=== PATIENT | female | born 1985 | race Caucasian/White ===

== ENCOUNTER → 2018-09-20 | Outpatient (CLI) | payer BC, MEDICAID ==
[2014-05-16 14:36] VITALS: BP 134/84
[~2018-09-20] MED LIST: ALDACTONE25 MG PO; METFORMIN500 MG PO; NORCO 325 MG-51 TAB PO
== END ==
LOC: RAD 11:18
DX: M77.31 Calcaneal spur, right foot (principal); M79.89 Other specified soft tissue disorders

== ENCOUNTER → 2019-06-04 | Outpatient (CLI) | payer BC, MEDICAID ==
[2014-05-16 14:36] VITALS: BP 134/84
[~2019-06-04] MED LIST changes: +PREDNISONE1 MG; +TRAMADOL 50 MG TAB PO
== END ==
LOC: LAB 13:59
DX: H70.90 Unspecified mastoiditis, unspecified ear (principal)

== ENCOUNTER → 2019-06-05 | Outpatient (CLI) | payer BC, MEDICAID ==
[2014-05-16 14:36] VITALS: BP 134/84
== END ==
LOC: RAD 07:43
DX: H70.90 Unspecified mastoiditis, unspecified ear (principal)

== ENCOUNTER 2019-06-10 08:01 | Outpatient (RCR) | payer BC, MEDICAID ==
[2019-06-05 08:12] VITALS: BP 152/99
[2019-06-06 08:08] VITALS: BP 150/91
[2019-06-07 08:09] VITALS: BP 131/81
[2019-06-08 08:39] VITALS: BP 127/85
[2019-06-09 08:23] VITALS: BP 135/89
[~2019-06-10] VITALS: Ht 167.6 cm; Wt 131.8 kg
[2019-06-10 08:10] VITALS: BP 152/92
== END 2019-09-03 | disposition still patient (30) ==
LOC: AMSURD
DX: Z01.89 Encounter for other specified special examinations (principal)
CPT/HCPCS: J0696

== ENCOUNTER → 2019-09-30 | Outpatient (CLI) | payer BC, MEDICAID ==
[2019-09-30 12:41] LABS: BASO # 0.1 (0.02-0.10); EOS # 0.3 (0.04-0.40); EOS % 2.7 % (1.0-5.0); HEMATOCRIT 45.1 % (37.0-47.0); HEMOGLOBIN 14.4 g/dL (12.5-16.0); LYMPH# 2.5 (1.50-4.00); MEAN CELL VOLUME 85 fl (78-100); MEAN CORPUSCULAR HEMOGLOBIN 27 pg (27-31); MEAN CORPUSCULAR HGB CONC 32 g/dL (33-37); MEAN PLATELET VOLUME 11.1 fl (7.4-10.4); MONO # 0.6 (0.20-0.80); NEU # 6.5 (1.40-6.50); PLATELET COUNT 301 K/mm3 (130-400); RED BLOOD COUNT 5.28 M/mm3 (4.10-5.30); RED CELL DISTRIBUTION WIDTH 13.2 % (11.5-14.5)
[2019-09-30 12:50] LABS: POTASSIUM 4.4 mmol/L (3.5-5.1)
[2019-09-30 12:51] LABS: ALBUMIN 4.3 g/dL (3.5-5.0)
[2019-09-30 12:52] LABS: CALCIUM 10.4 mg/dL (8.3-10.5)
[2019-09-30 12:55] LABS: TOTAL BILIRUBIN 0.4 mg/dL (0.2-1.2)
[2019-09-30 13:46] LABS: ERYTHROCYTE SEDIMENTATION RATE 18 mm/hr (0-20)
[2019-10-01 11:42] LABS: ANA SCREEN with REFLEX Negative (Negative)
== END ==
LOC: LAB 12:11
PROVIDERS: Family Medicine
DX: Z00.00 Encounter for general adult medical examination without abnormal findings (principal); M25.50 Pain in unspecified joint; E78.5 Hyperlipidemia, unspecified; R73.9 Hyperglycemia, unspecified

== ENCOUNTER → 2019-11-18 | Outpatient (CLI) | payer BC, MEDICAID | LOC: LAB 14:47 | DX: E11.9 Type 2 diabetes mellitus without complications (principal) ==

== ENCOUNTER → 2020-02-18 | Outpatient (CLI) | payer BC, MEDICAID ==
[2020-02-18 08:13] LABS: BASO # 0.1 (0.02-0.10); EOS # 0.3 (0.04-0.40); EOS % 2.2 % (1.0-5.0); HEMOGLOBIN 13.7 g/dL (12.5-16.0); LYMPH# 3.1 (1.50-4.00); MEAN CELL VOLUME 86 fl (78-100); MEAN CORPUSCULAR HEMOGLOBIN 27 pg (27-31); MEAN CORPUSCULAR HGB CONC 32 g/dL (33-37); MEAN PLATELET VOLUME 10.3 fl (7.4-10.4); MONO # 0.9 (0.20-0.80); PLATELET COUNT 283 K/mm3 (130-400); RED BLOOD COUNT 5.02 M/mm3 (4.10-5.30); RED CELL DISTRIBUTION WIDTH 13.9 % (11.5-14.5); WHITE BLOOD COUNT 13.5 K/mm3 (4.8-10.8)
[2020-02-18 08:20] LABS: POTASSIUM 4.3 mmol/L (3.5-5.1)
[2020-02-18 08:21] LABS: ALBUMIN 3.9 g/dL (3.5-5.0)
[2020-02-18 08:23] LABS: TOTAL PROTEIN 7.8 g/dL (6.4-8.3)
[2020-02-18 08:25] LABS: TOTAL BILIRUBIN 0.2 mg/dL (0.2-1.2)
[2020-02-18 08:43] LABS: NEU # 9.2 (1.40-6.50)
== END ==
LOC: LAB 07:59
PROVIDERS: Physician Assistant
DX: E11.9 Type 2 diabetes mellitus without complications (principal); E78.5 Hyperlipidemia, unspecified; J30.9 Allergic rhinitis, unspecified; F41.9 Anxiety disorder, unspecified; E61.1 Iron deficiency; M25.50 Pain in unspecified joint; Z83.49 Family history of other endocrine, nutritional and metabolic diseases

== ENCOUNTER → 2020-04-07 | Outpatient (CLI) | payer BC, MEDICAID | LOC: RAD 08:42 | DX: M79.601 Pain in right arm (principal); Z98.890 Other specified postprocedural states ==

== ENCOUNTER → 2020-04-08 | Outpatient (CLI) | payer BC, MEDICAID | LOC: RAD 17:57 | DX: S83.241A Other tear of medial meniscus, current injury, right knee, initial encounter (principal); M17.11 Unilateral primary osteoarthritis, right knee ==

== ENCOUNTER → 2020-06-25 | Outpatient (CLI) | payer BC, MEDICAID ==
[2020-06-25 17:27] LABS: BASO # 0.1 (0.02-0.10); EOS # 0.3 (0.04-0.40); EOS % 2.2 % (1.0-5.0); HEMATOCRIT 41.4 % (37.0-47.0); HEMOGLOBIN 13.2 g/dL (12.5-16.0); LYMPH# 3.3 (1.50-4.00); MEAN CELL VOLUME 86 fl (78-100); MEAN CORPUSCULAR HEMOGLOBIN 28 pg (27-31); MEAN CORPUSCULAR HGB CONC 32 g/dL (33-37); MEAN PLATELET VOLUME 10.4 fl (7.4-10.4); MONO # 0.9 (0.20-0.80); NEU # 7.5 (1.40-6.50); PLATELET COUNT 303 K/mm3 (130-400); RED CELL DISTRIBUTION WIDTH 14.4 % (11.5-14.5); WHITE BLOOD COUNT 12.1 K/mm3 (4.8-10.8)
[2020-06-25 17:48] LABS: POTASSIUM 4.3 mmol/L (3.5-5.1)
[2020-06-25 17:49] LABS: CALCIUM 9.2 mg/dL (8.3-10.5)
[2020-06-25 17:50] LABS: TOTAL PROTEIN 7.7 g/dL (6.4-8.3)
[2020-06-25 17:52] LABS: TOTAL BILIRUBIN 0.3 mg/dL (0.2-1.2)
[2020-06-25 17:58] LABS: URINE APPEARANCE CLOUDY; URINE COLOR YELLOW
[2020-06-25 17:59] LABS: URINE BILIRUBIN NEGATIVE (NEGATIVE); URINE BLOOD NEGATIVE (NEGATIVE); URINE GLUCOSE NEGATIVE (NEGATIVE); URINE KETONE NEGATIVE (NEGATIVE); URINE LEUKOCYTE ESTERASE 1+ (NEGATIVE); URINE NITRATE NEGATIVE (NEGATIVE); URINE PROTEIN(semi-quant) TRACE mg/dL (NEGATIVE); URINE UROBILINOGEN NORMAL (NORMAL)
[2020-06-25 18:00] LABS: URINE MUCUS PRESENT (NOT PRESENT)
[2020-06-29 06:24] LABS: CORN ALLERGEN COUNT <0.10 kU/L (())
[2020-06-29 06:25] LABS: ALTERNARIA TENUIS CNT <0.10 kU/L (()); ASPERGILLUS FUMIGATUS AL COUNT <0.10 kU/L (()); BAKERS YEAST ALLERGEN COUNT <0.10 kU/L (()); BERMUDA GRASS ALLERGEN COUNT <0.10 kU/L (()); BOX ELDER-MAPLE ALLERGEN COUNT <0.10 kU/L (()); CAT DANDER ALLERGEN COUNT <0.10 kU/L (()); CLADOSPORIUM ALLERGEN COUNT <0.10 kU/L (()); COCKROACH ALLERGEN COUNT <0.10 kU/L (()); COTTONWOOD TREE ALLERGEN COUNT <0.10 kU/L (()); DOG DANDER ALLERGEN COUNT <0.10 kU/L (()); DUST MITES (D.F.) ALLERG COUNT <0.10 kU/L (()); DUST MITES (D.P.) ALLERG COUNT <0.10 kU/L (()); EGG WHITE ALLERGEN COUNT <0.10 kU/L (()); ELM TREE ALLERGEN COUNT <0.10 kU/L (()); FIREBUSH ALLERGEN COUNT <0.10 kU/L (()); MILK ALLERGEN COUNT <0.10 kU/L (()); OAK ALLERGEN COUNT <0.10 kU/L (()); ORANGE ALLERGEN COUNT <0.10 kU/L (()); PEANUT ALLERGEN COUNT <0.10 kU/L (()); RICE ALLERGEN COUNT <0.10 kU/L (()); ROUGH MARSH ELDER ALLERG COUNT <0.10 kU/L (()); RUSSIAN THISTLE ALLERGEN COUNT <0.10 kU/L (()); SHORT RAGWEED ALLERGEN COUNT <0.10 kU/L (()); SOYBEAN ALLERGEN COUNT <0.10 kU/L (()); STRAWBERRY ALLERGEN COUNT <0.10 kU/L (()); TOMATO ALLERGEN COUNT <0.10 kU/L (()); WHEAT ALLERGEN COUNT <0.10 kU/L (())
== END ==
LOC: RAD 17:00 → LAB 17:00
PROVIDERS: Family Medicine
DX: Z01.818 Encounter for other preprocedural examination (principal); E13.9 Other specified diabetes mellitus without complications; R21 Rash and other nonspecific skin eruption

== ENCOUNTER → 2020-07-07 | Outpatient (CLI) | payer BC, MEDICAID ==
[2020-07-07 15:07] LABS: PROTHROMBIN TIME 9.4 SECONDS (9.0-12.0)
== END ==
LOC: LAB 14:36
PROVIDERS: Family Medicine
DX: Z01.89 Encounter for other specified special examinations (principal)

== ENCOUNTER → 2021-04-25 | Outpatient (CLI) | payer BC, MEDICAID | LOC: LAB 14:37 | DX: E13.9 Other specified diabetes mellitus without complications (principal) ==

== ENCOUNTER → 2021-09-27 | Outpatient (CLI) | payer BC, MEDICAID ==
[2021-09-27 12:57] LABS: EOS # 0.16 K/mm3 (0.04-0.40); EOS % 1.4 % (1.0-5.0); HEMATOCRIT 41.8 % (37.0-47.0); HEMOGLOBIN 13.4 g/dL (12.5-16.0); LYMPH# 2.84 K/mm3 (1.50-4.00); MEAN CELL VOLUME 86 fl (78-100); MEAN CORPUSCULAR HEMOGLOBIN 28 pg (27-31); MEAN CORPUSCULAR HGB CONC 32 g/dL (33-37); MEAN PLATELET VOLUME 10.2 fl (7.4-10.4); MONO # 0.75 K/mm3 (0.20-0.80); NEU # 7.88 K/mm3 (1.40-6.50); PLATELET COUNT 303 K/mm3 (130-400); RED BLOOD COUNT 4.84 M/mm3 (4.10-5.30); RED CELL DISTRIBUTION WIDTH 13.7 % (11.5-14.5); WHITE BLOOD COUNT 11.8 K/mm3 (4.8-10.8)
[2021-09-27 13:09] LABS: ALBUMIN 3.9 g/dL (3.5-5.0)
[2021-09-27 13:10] LABS: CALCIUM 9.3 mg/dL (8.3-10.5)
[2021-09-27 13:11] LABS: TOTAL PROTEIN 7.4 g/dL (6.4-8.3)
[2021-09-27 13:13] LABS: TOTAL BILIRUBIN 0.3 mg/dL (0.2-1.2)
== END ==
LOC: LAB 12:44
PROVIDERS: Family Medicine
DX: Z02.1 Encounter for pre-employment examination (principal); J30.9 Allergic rhinitis, unspecified; F41.9 Anxiety disorder, unspecified; E13.9 Other specified diabetes mellitus without complications; E78.5 Hyperlipidemia, unspecified; Z83.49 Family history of other endocrine, nutritional and metabolic diseases; R53.83 Other fatigue; E61.1 Iron deficiency; E66.01 Morbid (severe) obesity due to excess calories

== ENCOUNTER → 2023-02-02 | Outpatient (CLI) | payer BC, MEDICAID ==
[2023-02-02 12:13] LABS: BASO # 0.04 K/mm3 (0.02-0.10); EOS # 0.15 K/mm3 (0.04-0.40); EOS % 1.2 % (1.0-5.0); HEMATOCRIT 36.2 % (37.0-47.0); HEMOGLOBIN 12.1 g/dL (12.5-16.0); LYMPH# 2.37 K/mm3 (1.50-4.00); MEAN CELL VOLUME 88 fl (78-100); MEAN CORPUSCULAR HEMOGLOBIN 29 pg (27-31); MEAN CORPUSCULAR HGB CONC 33 g/dL (33-37); MEAN PLATELET VOLUME 10.2 fl (7.4-10.4); MONO # 0.46 K/mm3 (0.20-0.80); NEU # 9.34 K/mm3 (1.40-6.50); PLATELET COUNT 255 K/mm3 (130-400); RED BLOOD COUNT 4.11 M/mm3 (4.10-5.30); RED CELL DISTRIBUTION WIDTH 13.8 % (11.5-14.5); WHITE BLOOD COUNT 12.5 K/mm3 (4.8-10.8)
== END ==
LOC: LAB 11:48
PROVIDERS: Nurse Practitioner
DX: Z33.1 Pregnant state, incidental (principal); Z86.39 Personal history of other endocrine, nutritional and metabolic disease